=== PATIENT | female | born 1990 | race Caucasian/White ===

== ENCOUNTER 2016-12-07 08:33 | Day surgery (SDC) | payer OTHER ==
[~2016-12-07] VITALS: Ht 170.2 cm; Wt 51.9 kg
--- NOTE | 2016-12-07 07:54 | PCM.HPANE ---
Patient Data Surgeon Admitting Provider: Attending Provider:Hernan Tyson DO Primary Care Physician:Mica Dorman Other Provider:Timothy Scott Anesthesia Reason for Visit Right Olecranon Fracture Ht/WT & BMI Height (Feet): 5 Height (Inches): 7 Weight (Kilograms): 52.34 Body Mass Index 18.00 Allergies Coded Allergies: No Known Allergies (Unverified , 12/05/16) Past Anesthesia History Anesthesia History: Denies:: Abnormal Airway, Anesthesia Reactions, Difficult Intubation, Fam Anesthesia Reaction Diabetes History Hx Diabetes?: No MRSA MRSA: No Medications Hypertension Medication: No Home Meds Incl Beta Michael: No Reported Medications Paroxetine 20 Mg [id number] Mg PO HS 30 Days Ref 0 12/05/16 [paraguard T] 380A No Conflict Check Intrauteri Daily 12/05/16 Rizatriptan (Maxalt)5 Mg Tablet5 Mg PO Q2H PRN migraine NTE 30mg/24hr 12/05/16 Ibuprofen 200 Mg [id number] Mg PO Q6H PRN For Pain Ref 0 12/05/16 History History of ENT Problems?: No HEENT History: Denies:: Abnormal Airway Cataracts Difficult Intubation Dysphagia Glaucoma Hearing Problem Sinus Problem TMJ Hx of Heart Problems?: No Cardiovascular History: Denies:: AICD Abdominal Aortic Aneurism Atrial Fibrillation Cardiac Surgery Chest Pain Congestive Heart Failure Coronary Artery Disease Edema Heart Murmur Hypertension Irregular Heartbeat Pacemaker Peripheral Vascular Hx of Respiratory Problem?: No Respiratory History: Denies:: Asthma COPD Emphysema Oxygen Administration Pneumonia Tuberculosis Use of C-PAP Machine Use of Inhalers / NEBS Hx Neurologic Problems?: Yes Neurological History: Positive for:: Headaches (4-6 times monthly) Denies:: CVA Dizziness Multiple Sclerosis Parkinson's Disease Seizures TIA Hx of GI Problems?: No Gastrointestinal History: Denies:: Cirrhosis Diverticulitis Gall Bladder Disease Gastroesphageal Reflux Gastrointestinal Bleeding Heartburn Hepatitis Hiatal Hernia Liver Disease Rectal Bleeding Hx of Problems?: No Genitourinary History: Denies:: Kidney Stones Urinary Tract Infection Female Hx: Denies:: Currently Problems with Breasts? Skin History: Denies:: History Skin Disorders? Pressure Ulcers Hx Musculoskeletal Problems?: Yes Musculoskeletal History: Positive for:: Musculoskeletal Trauma (right olecranon fx current admission problem) Denies:: Back Injury Degenerative Joint Fibromyalgia Joint Replacement Osteoarthritis Rheumatoid Arthritis Systemic Lupus Hx of Psycho/Social Problems?: Yes Psycho Social History: Positive for:: Anxiety Hx Depression Hx Surgeries?: No (no prior surgery) Hx Any Other Health Problems?: Yes Other History: Denies:: Cancer Thyroid Disease History Blood Transfusions: Positive for:: Accept Blood Products? Denies:: Blood Transfusions Hx Diabetes: No Hx Alcohol Use: YesAlcoholic Drinks Per Day: one drink weeklyHx Substance Use : NoHave You Smoked inLast 12 mo: No Stop/Bang S-Snoring: Do You Snore Loudly: No T-Tired: feel tired, fatigued: Yes O-Obsered: Observed not breath: No P-Blood Pressure: treated: No B- Body Mass Index > 35 kg/m2: No A- Age over 50: No N- Neck Large Circumference: No G- Gender Male: No INES Total Score: 1 INES Risk Assessment: Low Risk, <3 Yes Risk Assessment Category Category 1A: Patient has history of documented sleep apnea, and HAS NOT received any narcotic, sedative or anesthesia administration during this stay. Category 1B: Patient has history of documented sleep apnea, and HAS received any narcotic , sedative or anesthesia administration during this stay Category 2: Patient has SUSPECTED Obstructive Sleep Apnea, and HAS received any narcotic , sedative or anesthesia administration during this stay. Category 3: Patient has SUSPECTED Obstructive Sleep Apnea and HAS NOT received narcotic, sedative or anesthesia administration during this stay. Category 4: Outpatient in Procedural Areas with known sleep apnea or who screen positive for High Risk via the STOP/BANG questionnaire. Exam Exam General Appearance: Alert, Oriented X3, Cooperative HEENT/AIRWAY: MP 1 Lungs: Normal Air Movement Heart: Exam Unremarkable Plan Impression Patient chart reviewed, patient interviewed and anesthestic plan with risks, benefits, and alternatives discussed, and informed consent obtained. ASA Physical Status: ASA1 Normal Healthy Anesthetic Plan: GA Bene/Risks/Altern/Consents: Yes HP Complete Prior to Induction: Yes Garrett Tellez MD Dec 07, 2016 07:54
[~2016-12-07 08:33] MED LIST: CeFAZolin 2 Gm/50 mL D5W IV Premix IV ONE; IBUP200C PO; PARO20TA5 PO; RIZA5TAB34 PO; [UNRECOGNIZED DRUG - OTHER] INTRAUTERI
[2016-12-07] MEDS ORDERED: Ondansetron 2 mg/mL 2 mL Inj ONE (08:34)
[2016-12-07] MEDS ORDERED: Dexamethasone 4 mg/mL Inj ONE (08:34)
[2016-12-07] MEDS ORDERED: fentaNYL-PF 50 mCg/mL 2 mL Inj ONE (08:34)
[2016-12-07] MEDS ORDERED: Propofol 10,000 mCg/mL 20 mL Inj ONE (08:34)
[2016-12-07 09:15] VITALS: BP 116/75; PULSE 72; RESP 16; O2SAT 100
[2016-12-07] MEDS: Lactated Ringer's 1,000 ML IV SCH ×2 (09:33→10:49)
[2016-12-07] MEDS ORDERED: Lactated Ringer's 500 ML IV PRN (11:12)
[2016-12-07] MEDS ORDERED: Lactated Ringer's 1,000 ML IV SCH (11:12)
[2016-12-07] MEDS ORDERED: Phenylephrine 10,000 mCg/mL Inj IVPUSH PRN (11:15)
[2016-12-07] MEDS ORDERED: HYDROmorphone 1 mg/mL Inj IVPUSH PRN (11:15)
[2016-12-07] MEDS ORDERED: EPHEDrine Sulfate 50 mg/mL Inj IVPUSH PRN (11:15)
[2016-12-07] MEDS ORDERED: MetoCLOpramide 5 mg/mL 2 mL Inj IVPUSH PRN (11:15)
[2016-12-07] MEDS ORDERED: Dexamethasone 4 mg/mL Inj IVPUSH PRN (11:15)
[2016-12-07] MEDS ORDERED: Ondansetron 2 mg/mL 2 mL Inj IVPUSH PRN (11:15)
[2016-12-07] MEDS ORDERED: oxyCODONE-Acetamin 5-325 mg Tablet PO PRN (11:15)
[2016-12-07] MEDS ORDERED: fentaNYL-PF 50 mCg/mL 2 mL Inj IVPUSH PRN (11:15)
[2016-12-07] MEDS ORDERED: Lidocaine 1%-Epi 1:100,000 20 mL Inj INFILTRATE ONE (11:23)
[2016-12-07 13:02] VITALS: BP 109/65; PULSE 112; RESP 12; O2SAT 97
[2016-12-07 13:09] VITALS: BP 105/71; PULSE 97; RESP 13; O2SAT 96
[2016-12-07 13:35] VITALS: BP 110/69; PULSE 110; RESP 16; O2SAT 97
--- NOTE | 2016-12-07 13:42 | PCM.ANEP1 ---
Post Anesthesia Phase 1 PACU Phase 1 Assessment Vital Signs Vital Signs Date Time Temp Pulse Resp B/P Pulse Ox O2 Delivery O2 Flow Rate FiO2 12/07/16 13:09 97 13 105/71 96 Room Air 12/07/16 13:02 36.6 112 12 109/65 97 Room Air 12/07/16 09:15 36.2 72 16 116/75 100 Room Air Anesthetic Administered: GA Level of Alertness: Awake, talking CYR's with Equal Strength: Yes Pain: No Nausea or Vomiting: No Oxygen Delivery: Room Air Lungs: Normal Air Movement Dermatome Level: Full Sensation Garrett Tellez MD Dec 07, 2016 13:42
--- NOTE | 2016-12-07 13:42 | PCM.ANEP2 ---
Post Anesthesia Evaluation ASA/CMS Post Anesthesia VS in Patient's Normal Range?: Yes Resp Stable; Airway Patent?: Yes CV Function & Hydration Stable: Yes Mental Status Recovered?: Yes Pain control Satisfactory?: Yes N/V Control Satisfactory?: Yes Garrett Tellez MD Dec 07, 2016 13:42
[2016-12-07 15:20] VITALS: BP 114/70; PULSE 68; RESP 18; O2SAT 99
--- NOTE | 2016-12-07 17:48 | OP ---
[address] [address] OPERATIVE REPORT PATIENT: SIDNEY WHITMAN : 1990 MR#: [id number] ADMIT: 12/07/2016 JOB ID: [id number] DATE OF SURGERY: 12/07/2016 PREOPERATIVE DIAGNOSIS(ES): Right olecranon fracture. POSTOPERATIVE DIAGNOSIS(ES): Right olecranon fracture. PROCEDURE: Open reduction, internal fixation right olecranon fracture. SURGEON: Hernan Tyson D.O. ANESTHESIA: General. BRIEF HISTORY: The patient is a pleasant 26-year-old female that fell down the stairs about 10 days ago. She is uncertain exactly how she fell but states she had pain to the elbow. She was seen at an [facility] facility in [place] and demonstrated nondisplaced olecranon fracture and placed into a splint. She was comfortable within the splint. Upon presentation, I gave the patient the options for treatment including utilizing a brace for a limited protected range of motion with weekly followup to ensure that the fracture has not displaced, versus proceeding with surgery that would allow a little earlier motion, but in the long run likely will not make much functional difference. The patient opted to proceed with surgery as she states she would like to ensure the least amount of this as possible and she states that she is a patient who would rather just get it fixed. She understood the risks, benefits, alternatives, and indications. Consent was signed and placed in the chart. PROCEDURE IN DETAIL: The patient was brought to the operative suite and placed supine on the operating table. Surgical time-out was then performed. Everyone in the room was in agreement. After appropriate anesthesia was obtained, the patient was placed into the left lateral decubitus position with the body secured with beanbags and all prominences well padded. A tourniquet was then applied to the right upper extremity. The right upper extremity was then prepped and draped in sterile fashion. The right upper extremity was exsanguinated and the tourniquet inflated to 250 mmHg. A posterior incision was made with a slight curve around the olecranon laterally and down the subcutaneous border of the ulna. Dissection was carried down to the interval between the ECU and the FCU. Dissection was carried to the subcutaneous border of the ulna and extended proximally to the olecranon. The periosteum was then elevated. The fracture site was identified but still maintained nondisplaced. This was followed by application of a Synthes two-hole olecranon plate. It was held provisionally in place with K-wires with the position verified under fluoroscopy. A nonlocking screw was then advanced from the proximal aspect of the plate and proximal segment and across to the anterior aspect of the proximal ulna. A nonlocking screw was placed in this position, allowing for excellent compression of the plate. This was followed by further compression mode with a 3.5 mm nonlocking screw distally in the shaft. Multiple views on fluoroscopy were utilized to verify anatomic reduction, placement of the hardware, and appropriate length of the screws. Completion of fixation was performed utilizing a combination of nonlocking and locking screws both proximally and distally. Final radiographic projections on fluoroscopy were utilized. The patient was brought through a full functional range of motion including full flexion/extension and prone with supination without any impingement. Copious irrigation was performed followed by closure of the underlying fascia with 0-Vicryl, 4-0 Vicryl for the subcutaneous tissues, and a running 4-0 Monocryl. Steri-Strips were then utilized and the patient placed into a bulky dressing. ESTIMATED BLOOD LOSS: Less than 5 cc. COMPLICATIONS: None. DISPOSITION: The patient tolerated the procedure well. Anesthesia was reversed. The patient was transferred to PACU for recovery. IMPLANTS: Synthes two-hole olecranon plate. POSTOPERATIVE PLAN: The patient can work on range of motion to the right elbow but is limited on any lifting, pushing, or pulling with the right arm. She is to follow up in two weeks for a wound recheck. She will be approximately six weeks postop before we can start advancing any weight to the right arm.
== END 2016-12-07 23:59 | disposition home or self-care (01) ==
LOC: SAS 08:33
PROVIDERS: ATTEND Orthopaedic Surgery
DX: S52.021A Displaced fracture of olecranon process without intraarticular extension of right ulna, initial encounter for closed fracture (principal); R51 Headache; F41.9 Anxiety disorder, unspecified; F32.9 Major depressive disorder, single episode, unspecified; W10.8XXA Fall (on) (from) other stairs and steps, initial encounter; Y92.9 Unspecified place or not applicable; Z79.899 Other long term (current) drug therapy
CPT/HCPCS: 24685; 76001; C1713; J0690; J1100; J2250; J2405; J7120